=== PATIENT | female | born 1975 | race Caucasian/White ===

== ENCOUNTER → 2016-08-28 | Outpatient (CLI) | payer BC ==
[~2016-08-28] MED LIST: B-COTAB18 PO; NUTR-218 PO
--- NOTE | 2016-08-28 17:01 | DIAGNOSTIC IMAGING REPORT ---
L-SPINE MIN 4 VIEWS ROUTINE CLINICAL HISTORY: Low back pain. COMPARISON: None. FINDINGS: Alignment of the lumbar spine is anatomic. Vertebral body heights are maintained. There is no fracture or suspicious lesion. There is minimal disc space narrowing at L5-S1. Facet joints are intact. Sacroiliac joints are intact. IMPRESSION: 1. Minimal disc space narrowing at L5-S1. 2. Otherwise, unremarkable lumbar spine radiographs. Electronically signed by: Rosas Haq M.D. 08/28/2016 5:00 PM Dictated Date/Time: 08/28/2016 4:58 PM
--- NOTE | 2016-08-28 17:02 | DIAGNOSTIC IMAGING REPORT ---
SI JOINTS 3 OR MORE VIEWS CLINICAL HISTORY: LOW BACK PAIN COMPARISON STUDY: No previous studies for comparison. FINDINGS: The sacroiliac joints are intact without evidence for ankylosis. No erosive changes are identified. No fracture or suspicious lesion is identified within visualized skeletal structures by radiography. IMPRESSION: No significant abnormality of the sacroiliac joints. Electronically signed by: Rosas Haq M.D. 08/28/2016 5:01 PM Dictated Date/Time: 08/28/2016 5:00 PM
== END | disposition home or self-care (01) ==
LOC: C.RAD 16:15
PROVIDERS: ATTEND Nurse Practitioner Family
DX: M54.5 Low back pain (principal)

== ENCOUNTER → 2016-11-04 | Outpatient (CLI) | payer BC ==
[~2016-11-04] VITALS: Ht 165.1 cm; Wt 66.4 kg
[2016-11-04 14:33] VITALS: BP 105/44; PULSE 69; Ht 165.1 cm; Wt 66.4 kg
== END | disposition home or self-care (01) ==
LOC: C.NEUR 13:03
PROVIDERS: ATTEND Internal Medicine Pulmonary Disease
DX: R53.83 Other fatigue (principal); R06.83 Snoring; R06.89 Other abnormalities of breathing; R07.9 Chest pain, unspecified; R00.2 Palpitations; F41.9 Anxiety disorder, unspecified